=== PATIENT | female | born 1985 | race Native Hawaiian/Other Pacific Islander ===

== ENCOUNTER 2017-10-03 11:12 | Outpatient (CLI) | payer OTHER | END 2017-10-03 19:25 | disposition home or self-care (01) | LOC: US 11:12 | DX: R22.1 Localized swelling, mass and lump, neck (principal) ==

== ENCOUNTER 2017-10-24 11:47 | Outpatient (CLI) | payer OTHER | END 2017-10-24 22:15 | disposition home or self-care (01) | LOC: CT 11:47 | DX: R22.1 Localized swelling, mass and lump, neck (principal) | CPT/HCPCS: Q9963 ==